=== PATIENT | female | born 1965 | race Caucasian/White ===

== ENCOUNTER 2017-02-25 08:29 | Observation (INO) | payer BC, OTHER ==
[2017-02-25] MEDS ORDERED: PHENAZOPYRIDINE HCL 200 MG TAB PO ONE (09:03)
[2017-02-25] MEDS ORDERED: GABAPENTIN 400 MG CAP PO ONE (09:03)
[2017-02-25] MEDS ORDERED: ceFAZolin 2 GM/SWFI 2 GM/20 ML SYR IVP ONE (09:03)
[2017-02-25] MEDS ORDERED: ACETAMINOPHEN 500 MG TAB PO ONE (09:03)
[2017-02-25] MEDS ORDERED: LIDOCAINE 1% 2 ML INJ ID PRN (09:10)
[2017-02-25] MEDS ORDERED: LR 1,000 ML IV ONE ×2 (09:10→09:16)
[2017-02-25] MEDS ORDERED: BUPIVACAINE/EPI 0.5% 30 ML SDV ONE (09:20)
[2017-02-25] MEDS ORDERED: SCOPOLAMINE HYDROBROMIDE 1 MG/3 DAYS PATCH TD ONE ×2 (09:37→10:00)
[2017-02-25] MEDS ORDERED: PROPOFOL 200 MG/20 ML VIAL ONE (09:40)
[2017-02-25] MEDS ORDERED: ROCURONIUM 50 MG/5 ML VIAL ONE (09:40)
[2017-02-25] MEDS ORDERED: fentaNYL 100 MCG/2 ML INJ ONE ×3 (09:40→11:30)
[2017-02-25] MEDS ORDERED: DEXAMETHASONE 4 MG/ML VIAL ONE (09:45)
[2017-02-25] MEDS ORDERED: ONDANSETRON 4 MG/2 ML VIAL ONE (09:45)
--- NOTE | 2017-02-25 10:17 | PDANEPAE ---
ANE History of Present Illness 51 year old female wit PMH significant with uterine fibroids causing pelvic pain and hypothyroidism. She has a history of post operative nausea and vomiting, she is otherwise healthy. ANE Past Medical History - Cardiovascular History Hx Hypertension: No Hx Arrhythmias: No Hx Chest Pain: No Hx Coronary Artery / Peripheral Vascular Disease: No Hx CHF / Valvular Disease: No Hx Palpitations: No - Pulmonary History Hx COPD: No Hx Asthma/Reactive Airway Disease: No Hx Recent Upper Respiratory Infection: No Hx Oxygen in Use at Home: No Hx Sleep Apnea: No Sleep Apnea Screening Result - Last Documented: Negative - Neurologic History Hx Cerebrovascular Accident: No Hx Seizures: No Hx Dementia: No - Endocrine History Hx Diabetes: No - Renal History Hx Renal Disorders: No - Liver History Hx Hepatic Disorders: No - Neurological & Psychiatric Hx Hx Neurological and Psychiatric Disorders: No - Cancer History Hx Cancer: No - Congenital Disorder History Hx Congenital Disorders: No - GI History Hx Gastrointestinal Disorders: Yes Gastrointestinal History Comment: constipation - Other Health History Other Health History: none - Chronic Pain History Chronic Pain: No - Surgical History Prior Surgeries: nnone ANE Review of Systems Review of Systems: - Exercise capacity METS (RN): 5 METS ANE Patient History - Allergies Allergies/Adverse Reactions: No Known Allergies Allergy (Verified 02/16/17 10:29) - Home Medications Home Medications: Herbals/Supplements -Info Only 1 ea PO DAILY 02/11/17 [Last Taken 02/22/17] Levonorgestrel-Eth Estradiol [Nordette-8] 1 each PO DAILY 02/11/17 [Last Taken 02/24/17] Levothyroxine [Synthroid 25 mcg (*)] 25 mcg PO DAILY06 02/11/17 [Last Taken 06:30] Liothyronine Sodium [Cytomel 5 mcg (*)] 5 mcg PO BID@06,13 02/11/17 [Last Taken 02/25/17 06:30] Multivitamins [Multivitamin (*)] 1 each PO DAILY 02/11/17 [Last Taken 02/22/17] [place]-3 Fatty Acids [Fish Oil 1000 mg (*)] 1,000 mg PO DAILY 02/11/17 [Last Taken 02/22/17] - NPO status NPO Since - Liquids (Date): 02/25/17 NPO Since - Liquids (Time): 07:00 NPO Since - Solids (Date): 02/24/17 NPO Since - Solids (Time): 20:00 - Smoking Hx Smoking Status: Never smoked - Family Anes Hx Family Hx Anesthesia Complications: none ANE Labs/Vital Signs - Vital Signs Blood Pressure: 142/78 Heart Rate: 78 Respiratory Rate: 14 O2 Sat (%): 100 Height: 182.88 cm Weight: 66.224 kg ANE Physical Exam - Airway Neck exam: FROM Mallampati Score: Class 1 Mouth exam: poor dentition - Pulmonary Pulmonary: no respiratory distress - Cardiovascular Cardiovascular: regular rate and rhythym - ASA Status ASA Status: II
[2017-02-25] MEDS ORDERED: HYDROmorphONE/DILAUDID 2 MG/ML INJ ONE (10:42)
[2017-02-25] MEDS ORDERED: NALOXONE HCL 0.4 MG/ML INJ IVP PRN (10:49)
[2017-02-25] MEDS ORDERED: LR 500 ML IV PRN (10:49)
[2017-02-25] MEDS ORDERED: METOCLOPRAMIDE 10 MG/2 ML VIAL IVP PRN (10:49)
[2017-02-25] MEDS ORDERED: KETOROLAC 30 MG/1 ML SDV ONE (10:58)
[2017-02-25] MEDS: fentaNYL 100 MCG/2 ML INJ IVP PRN ×3 (11:20→11:41)
--- NOTE | 2017-02-25 11:23 | POSTOPPROG ---
Post Op Note Date of Operation: 02/25/17 Surgeon: Hammad Vargas Auto Former Machine Operator: Lyndsay Dyer Anesthesia: GET(General Endotracheal) Pre-op Diagnosis: uterine fibroids, heavy menses Post-op Diagnosis: same plus endometyriosis Procedure: total robotic hyst/BSO, excision of endo, bilat uterosacral lig colpopexy Findings: ureters function at end of case Inf/Abcess present in the surg proc area at time of surgery?: No EBL: Minimal Complications: None
--- NOTE | 2017-02-25 12:10 | POSTANESTH ---
Post Anesthetic Evaluation Respiratory Status: Normal, Stable Level of Consciousness/Mental Status: Can Participate in Eval Pain Control: Adequate, Prn Tx Ordered Nausea/Vomiting Control: Adequate, Prn Tx Ordered Complications Possibly Related to Anesthesia: None Noted
[2017-02-25] MEDS ORDERED: HYDROmorphONE/DILAUDID 1 MG/ML INJ IVP PRN (13:31)
[2017-02-25] MEDS: OXYCODONE/APAP 5/325 TAB PO PRN ×2 (13:43→20:42)
[2017-02-25] MEDS ORDERED: ONDANSETRON 4 MG/2 ML VIAL IVP PRN (14:25)
[2017-02-25] MEDS: KETOROLAC 15 MG/1 ML SDV IVP SCH ×2 (15:15→18:45)
[2017-02-25] MEDS: DOCUSATE SODIUM 100 MG CAP PO SCH (20:42)
--- NOTE | 2017-02-25 21:19 | GOP ---
[f rep st] OPERATIVE REPORT DATE OF OPERATION: 02/25/2017 SURGEON: Hammad Vargas MD DICE PERSON: EMMA De Jesus. ANESTHESIA: General. PREOPERATIVE DIAGNOSIS: 1. Symptomatic uterine fibroids. 2. Uterine prolapse. 3. Dysmenorrhea. POSTOPERATIVE DIAGNOSIS: 1. Symptomatic uterine fibroids. 2. Uterine prolapse. 3. Dysmenorrhea. 4. Endometriosis. PROCEDURE PERFORMED: 1. Robotic-assisted total laparoscopic hysterectomy, bilateral salpingo-oophorectomy. 2. Excision of endometriosis in the posterior cul-de-sac. 3. Bilateral uterosacral ligament colpopexy. 4. Cystoscopy. FINDINGS: An enlarged fibroid with unremarkable tubes and ovaries were seen. There was endometriosi s in the posterior cul-de-sac with peritoneal windows which was completely excised. Cystoscopy was u nremarkable with vigorous jets of urine without any evidence of injury or pathology. SPECIMENS: 1. Uterus, cervix, bilateral tubes and ovaries. 1. Posterior cul-de-sac, peritoneum with endometriosis. 2. ESTIMATED BLOOD LOSS: Scant. DESCRIPTION OF PROCEDURE: The patient was taken to the operating room where she was identified. Gen eral anesthesia was administered and found to be adequate. She was placed in the lithotomy position and prepared and draped in normal sterile fashion. A VCare uterine manipulator was placed into the e ndometrial cavity and sutured to the cervix. A Echeverria catheter was then placed. A 1 cm infraumbilical incision was made with a scalpel. The Veress needle with the CO2 gas flowing w as advanced into the peritoneal cavity. The abdomen was then insufflated with carbon dioxide gas. T he 12 mm trocar followed by the laparoscope were then inserted. The findings were as noted above. T he upper abdomen was unremarkable. Two lateral ports were placed in the right and 1 on the left unde r direct visualization. She then was placed in Trendelenburg position and the da Pravin robot docked on the left side. The instruments were then brought into the abdominal cavity under direct visualiza tion. The left round ligament was divided. The anterior lip of the broad ligament was incised to th e bifurcation of the left common iliac vessels. The course of the ureter was identified and a window was created anterior to the ureter to skeletonize the infundibulopelvic vessels. They were then cau terized and transected. The anterior leaf of the broad ligament was then incised over the left uteri ne vasculature and across the cervix. The bladder was gently dissected off the cervix and upper vagi na. The left uterine vasculature was then cauterized and transected. The exact same procedure was p erformed on patient's right side. A circumferential colpotomy incision was then made with the hot sh ears and the specimen removed through the vagina. The posterior cul-de-sac peritoneum with endometri osis was then completely excised and removed through the vagina. The vaginal cuff was then closed wi th a running suture of 0 V-Loc 180. A bilateral uterosacral ligament colpopexy was performed by isidra scott the lateral aspects of the vaginal cuff to the ipsilateral uterosacral ligaments near their ins ertion into the coccygeal-sacrospinous ligament complexes. The pelvis was then irrigated with steril e saline, and hemostasis was present. The robot was then undocked. The fascia was closed with 0 Sigifredo ryl, the skin with 4-0 Monocryl and surgical adhesive. Cystoscopy was then performed. Both ureters had vigorous jets of urine. There was no evidence of bl adder nor urethral injury seen. No sutures were seen within the bladder. No obvious pathology was s een. Anesthesia was reversed and the patient taken to PACU awake, in stable condition. COMPLICATIONS: None. DISPOSITION: Patient stable to PACU. /[id number]/MODL
[2017-02-26] MEDS: KETOROLAC 15 MG/1 ML SDV IVP SCH ×2 (00:40→06:40)
[2017-02-26] MEDS: OXYCODONE/APAP 5/325 TAB PO PRN ×3 (00:41→09:06)
[2017-02-26 05:30] VITALS: O2SAT 96
[2017-02-26 08:09] VITALS: BP 109/55; PULSE 70; RESP 17; TEMP 98.2
[2017-02-26] MEDS: DOCUSATE SODIUM 100 MG CAP PO SCH (11:54)
== END 2017-02-26 12:00 | disposition home or self-care (01) ==
LOC: F3E 08:29 → FOB 12:55
PROVIDERS: ADMIT Obstetrics & Gynecology; ATTEND Obstetrics & Gynecology
DX: D25.1 Intramural leiomyoma of uterus (principal); N80.3 Endometriosis of pelvic peritoneum; N92.0 Excessive and frequent menstruation with regular cycle; N81.9 Female genital prolapse, unspecified; R10.2 Pelvic and perineal pain; N81.6 Rectocele; E03.9 Hypothyroidism, unspecified
CPT/HCPCS: 57425; 58571; 58662; G0378; J0690; J1100; J1170; J1885; J2405; J2704; J3010

== ENCOUNTER → 2018-05-03 | Outpatient (CLI) | payer BC | LOC: FIMAGING 11:00 | PROVIDERS: ATTEND Family Medicine | DX: Z12.31 Encounter for screening mammogram for malignant neoplasm of breast (principal) ==